=== PATIENT | female | born 1955 | race African-American/Black ===

== ENCOUNTER 2017-09-20 19:20 | Emergency (ER) | payer OTHER ==
[~2017-09-20] VITALS: Ht 162.6 cm; Wt 100.0 kg
[2017-09-20 19:30] VITALS: BP 180/87; PULSE 76; RESP 18; TEMP 98.1; O2SAT 99
--- NOTE | 2017-09-20 20:13 | PD ---
HPI Chief Complaint: Musculoskeletal Complaint Time Seen by Provider: 20:08 Travel History International Travel<30 days: No Contact w/Intl Traveler<30days: No Traveled to known affect area: No History of Present Illness HPI 60-year-old female presents for evaluation of the left knee/proximal leg pain. Symptoms started 3 days ago. He describes as a sharp pain in her left knee as well as her occasional left thigh region. Symptoms are worse when walking, no alleviating factors. She denies any numbness or tingling or weakness. She denies any injuries. She denies any back pain or abdominal pain. She reports that she had similar pain 6 months ago, was seen by her orthopedic physician Dr. Lind, was diagnosed with "arthritis" she reports that she received injections in her left knee which helped. She has no other complaints at this time. [facility] Past Medical History Medical History: Denies Significant Hx Cardiovascular Problems: No Diabetes: No Diminished Hearing: No Musculoskeletal: Yes (RIGHT ANKLE SURGERY 2007) Immunizations Current: No Tetanus Vaccination: < 5 Years Influenza Vaccination: Yes ?: Not Menopausal: Yes Para: 0 Past Surgical History Hysterectomy: Yes Social History Alcohol Use: No Tobacco Use: No Substance Use: No Allergies-Medications (Allergen,Severity, Reaction): Coded Allergies: No Known Allergies (Verified Adverse Reaction, Unknown, 09/20/17) Reported Meds & Prescriptions Reported Meds & Active Scripts Active Diclofenac Sodium DR (Diclofenac Sodium) 75 Mg Tabdr 75 Mg PO BID 14 Days Review of Systems General / Constitutional: No: Fever, Chills Cardiovascular: No: Chest Pain or Discomfort Gastrointestinal: No: Nausea, Vomiting, Abdominal Pain Musculoskeletal: Positive: Pain, No: Edema Skin: Positive Other (Denies bruising, soft tissue swelling, open wounds) Neurologic: No: Weakness, Paresthesia Physical Exam Narrative GENERAL: Well-developed well-nourished female in no acute distress ambulating in the hospital room. Her vital signs have been reviewed. SKIN: Warm and dry. There is no bruising or soft tissue swelling. HEAD: Atraumatic. Normocephalic. EYES: Pupils equal and round. No scleral icterus. No injection or drainage. ENT: No nasal bleeding or discharge. Mucous membranes pink and moist. NECK: Trachea midline. No JVD. CARDIOVASCULAR: Regular rate and rhythm. No murmur appreciated. RESPIRATORY: No accessory muscle use. Clear to auscultation. Breath sounds equal bilaterally. GASTROINTESTINAL: Abdomen soft, non-tender, nondistended. Hepatic and splenic margins not palpable. MUSCULOSKELETAL: No obvious deformities. There is tenderness to palpation to the medial and lateral aspect of left knee as well as the left thigh. Patient maintains full range of motion of the lower extremities. No obvious laxity on valgus/varus/anterior/posterior left knee stress. 2+ dorsalis pedis and posterior tibial pulses bilaterally. NEUROLOGICAL: Awake and alert. No obvious cranial nerve deficits. Motor grossly within normal limits. Normal speech. Data Data Last Documented VS Vital Signs Date Time Temp Pulse Resp B/P (MAP) Pulse Ox O2 Delivery O2 Flow Rate FiO2 09/20/17 19:30 98.1 76 18 180/87 (118) 99 Orders Orders Knee, Complete (4vws) (09/20/17 ) Us Leg Venous Doppler (09/20/17 20:17) Ketorolac Inj (Toradol Inj) (09/20/17 20:30) Ed Discharge Order (09/20/17 22:35) [facility] Medical Decision Making Medical Screen Exam Complete: Yes Emergency Medical Condition: Yes Medical Record Reviewed: Yes Differential Diagnosis Osteoarthritis, knee sprain, radiculopathy, DVT, peripheral neuropathy, peripheral vascular disease Narrative Course 60-year-old female here with left knee and left thigh pain for the past 2 days. X-ray of the left knee, ultrasound of the left leg will be obtained. The patient will be given Toradol for pain control. Ultrasound is negative. X-ray reveals moderate osteoarthritis. At this point time the plan is to discharge her with a prescription for diclofenac. She is stable for discharge. Diagnosis Primary Impression: Osteoarthritis of left knee Additional Instructions: Medication as prescribed. Follow-up with primary care physician. Return for any emergent medical conditions. Med/Other Pt SpecificInfo: Prescription(s) given Scripts Diclofenac Sodium DR (Diclofenac Sodium DR) 75 Mg Tabdr 75 MG PO BID for 14 Days, #28 TAB 0 Refills Prov: Segun Price MD 09/20/17 Disposition: 01 DISCHARGE HOME Condition: Stable Adan Hurt Sep 20, 2017 20:13
[2017-09-20] MEDS ORDERED: KETOROLAC TROMETHAMINE 60 MG/2 ML (IM) VIAL IM ONE (20:30)
--- NOTE | 2017-09-20 20:44 | RADRPT ---
EXAM DATE: 09/20/2017 8:41 PM EDT AGE/SEX: 61 years / Female INDICATIONS: Pain LT medial knee for 3 days CLINICAL DATA: This is the patient's initial encounter. Patient reports that signs and symptoms have been present for 3 days and indicates a pain score of 7/10. MEDICAL/SURGICAL HISTORY: Arthritis. None. COMPARISON: No prior exams available for comparison. FINDINGS: Moderate osteoarthritis at the medial joint. No acute fracture or dislocation. No bony destructive ch anges. CONCLUSION: Moderate osteoarthritis at the medial joint. Electronically signed by: Rolf Marino MD 09/20/2017 8:43 PM EDT
--- NOTE | 2017-09-20 22:31 | RADRPT ---
EXAM DATE: 09/20/2017 10:24 PM EDT AGE/SEX: 61 years / Female INDICATIONS: Left leg pain. CLINICAL DATA: This is the patient's initial encounter. Patient reports that signs and symptoms have been present for 1 day and indicates a pain score of 5/10. MEDICAL/SURGICAL HISTORY: . . COMPARISON: No prior exams available for comparison. TECHNIQUE: Venous ultrasound of both lower extremities was performed from the inguinal ligament to t he proximal calf. Real-time, color Doppler and spectral tracing, compression and augmentation techni ques were used. FINDINGS: There is normal compressibility of the deep venous system from the inguinal region to the proximal ca lf. No echogenic clot is seen in the lumen of the common femoral, femoral, popliteal, and posterior tibial veins. There is a normal response of the venous system to proximal and distal augmentation an d respiration. CONCLUSION: 1. Negative for deep venous thrombosis. Electronically signed by: Rolf Marino MD 09/20/2017 10:30 PM EDT
[2017-09-20] MEDS ORDERED: DICL75TA PO (22:34)
== END 2017-09-20 22:54 | disposition home or self-care (01) ==
LOC: NEPD 19:20
DX: M79.652 Pain in left thigh (principal); M17.12 Unilateral primary osteoarthritis, left knee
CPT/HCPCS: 73564; 93971; 96372; 99284; J1885